=== PATIENT | female | born 1960 | race Caucasian/White ===

== ENCOUNTER → 2018-02-15 14:18 | Outpatient (CLI) | payer OTHER, SELFPAY ==
[2018-02-15 16:02] LABS: ALB/GLOB Ratio 1.2 RATIO (0.9-2.4); AST(SGOT) 14 U/L (15-37); Alanine Aminotransfer ALT/SGPT 23 U/L (13-56); Albumin, Serum 3.7 g/dL (3.2-5.0); Alkaline Phosphatase 101 U/L (45-117); Anion Gap 10 (5-15); BUN 21 mg/dL (7-18); BUN/Creat Ratio 27.8 RATIO (10-20); Calcium,Total 8.5 mg/dL (8.5-10.1); Chloride 108 mmol/L (98-107); Creatinine, Serum 0.76 mg/dL (0.55-1.02); EST Glomerular Filtration Rate 85 mL/min (>60); Est Glom Filt Rate - Afr Amer 102 mL/min (>60); Globulin 3.2 g/dL (2.2-4.2); Glucose 172 mg/dL (74-106); Potassium 3.6 mmol/L (3.5-5.1); Protein, Total 6.9 g/dL (6.4-8.2); Sodium Level 142 mmol/L (136-145); Thyroid Stim Hormone (TSH) 0.35 uIU/mL (0.358-3.74)
[2018-02-16 11:58] LABS: Vitamin D,25 Hydroxy 70.2 ng/mL (29.95-100.01)
== END ==
PROVIDERS: Visit Provider Internal Medicine Endocrinology, Diabetes & Metabolism
DX: E89.0 Postprocedural hypothyroidism (principal); E55.9 Vitamin D deficiency, unspecified
CPT/HCPCS: 36415; 80053; 82306; 84443

== ENCOUNTER → 2018-03-09 10:51 | Outpatient (CLI) | payer OTHER, SELFPAY ==
[2018-03-09 12:22] LABS: Hematocrit 40.6 % (37-47); Hemoglobin 13.5 g/dl (12.0-15.0); Mean Corp Hgb Conc 33.3 g/gl (32-36); Mean Corpuscular Hgb 28.8 pg (27.0-32.0); Mean Corpuscular Volume 86.8 fL (81-99); Mean Platelet Vol. 10.8 fl (6.2-12.0); Platelet Count 225 K/mm3 (150-450); RBC Distribution Width SD 40.9 fl (35.1-43.9); Red Blood Count 4.68 M/mm3 (4.2-5.4); White Blood Count 5.5 K/mm3 (4.4-11.0)
[2018-03-09 12:25] LABS: Scan Indicated on CBC? Y/N NO
[2018-03-09 12:53] LABS: Hemoglobin A1c 5.7 % (4.2-6.3)
[2018-03-09 12:58] LABS: ALB/GLOB Ratio 1.2 RATIO (0.9-2.4); AST(SGOT) 16 U/L (15-37); Alanine Aminotransfer ALT/SGPT 22 U/L (13-56); Alkaline Phosphatase 103 U/L (45-117); Anion Gap 5 (5-15); BUN 20 mg/dL (7-18); BUN/Creat Ratio 34.8 RATIO (10-20); Calcium,Total 8.9 mg/dL (8.5-10.1); Chloride 110 mmol/L (98-107); Cholesterol 140 mg/dL (200); Creatinine, Serum 0.58 mg/dL (0.55-1.02); EST Glomerular Filtration Rate 116 mL/min (>60); Est Glom Filt Rate - Afr Amer 140 mL/min (>60); Globulin 3.3 g/dL (2.2-4.2); Glucose 92 mg/dL (74-106); High Density Lipoprotein 62 mg/dL; Potassium 3.8 mmol/L (3.5-5.1); Protein, Total 7.3 g/dL (6.4-8.2); Sodium Level 142 mmol/L (136-145); Thyroid Stim Hormone (TSH) 0.42 uIU/mL (0.358-3.74); Triglycerides 81 mg/dL; Very Low Density Lipoprotein 16 mg/dL (5-40)
== END ==
DX: I10 Essential (primary) hypertension (principal); E78.5 Hyperlipidemia, unspecified; E11.9 Type 2 diabetes mellitus without complications
CPT/HCPCS: 36415; 80053; 80061; 83036; 84443; 85027

== ENCOUNTER → 2018-03-23 11:08 | Outpatient (CLI) | payer OTHER, SELFPAY ==
[2018-03-23 12:22] LABS: Thyroid Stim Hormone (TSH) 0.93 uIU/mL (0.358-3.74)
== END ==
PROVIDERS: Visit Provider Internal Medicine Endocrinology, Diabetes & Metabolism
DX: E89.0 Postprocedural hypothyroidism (principal); R73.01 Impaired fasting glucose
CPT/HCPCS: 36415; 84443

== ENCOUNTER → 2018-09-03 16:38 | Outpatient (CLI) | payer OTHER, SELFPAY ==
[2018-09-03 18:30] LABS: ALB/GLOB Ratio 1.2 RATIO (0.9-2.4); AST(SGOT) 14 U/L (15-37); Alanine Aminotransfer ALT/SGPT 21 U/L (13-56); Albumin, Serum 4.1 g/dL (3.2-5.0); Alkaline Phosphatase 96 U/L (45-117); Anion Gap 9 (5-15); BUN 16 mg/dL (7-18); BUN/Creat Ratio 28.7 RATIO (10-20); Calcium,Total 8.9 mg/dL (8.5-10.1); Chloride 104 mmol/L (98-107); Creatinine, Serum 0.56 mg/dL (0.55-1.02); EST Glomerular Filtration Rate 120 mL/min (>60); Est Glom Filt Rate - Afr Amer 145 mL/min (>60); Globulin 3.4 g/dL (2.2-4.2); Glucose 81 mg/dL (74-106); Potassium 3.5 mmol/L (3.5-5.1); Protein, Total 7.5 g/dL (6.4-8.2); Sodium Level 140 mmol/L (136-145); Thyroid Stim Hormone (TSH) 0.94 uIU/mL (0.358-3.74); Vitamin D,25 Hydroxy 66.8 ng/mL (29.95-100.01)
== END ==
PROVIDERS: Referring Provider Internal Medicine Endocrinology, Diabetes & Metabolism; Visit Provider Internal Medicine Endocrinology, Diabetes & Metabolism
DX: E55.9 Vitamin D deficiency, unspecified (principal); E89.0 Postprocedural hypothyroidism
CPT/HCPCS: 36415; 80053; 82306; 84443

== ENCOUNTER 2018-12-28 16:35 | Observation (INO) | payer OTHER, SELFPAY ==
[2018-12-28] VITALS (10 sets, daily range): BP systolic 108–151; BP diastolic 63–87; PULSE 58–84; RESP 14–16; TEMP 36.5–36.7; O2SAT 96–97; BMI 34.4
--- NOTE | 2018-12-28 16:42 | EKG12_ITS ---
Test Reason : CP ADMIT Blood Pressure : / mmHG Vent. Rate : 070 BPM Atrial Rate : 070 BPM P-R Int : 188 ms QRS Dur : 092 ms QT Int : 396 ms P-R-T Axes : 035 023 053 degrees QTc Int : 427 ms Normal sinus rhythm Nonspecific ST abnormality Abnormal ECG Confirmed by AUDIE DENNIS, SYLVIA ([id number]), online content editor TIMUR STEVENS ([id number]) on 01/02/2019 10:17:47 AM Referred By: Lasha Dietrich Confirmed By:SYLVIA BRONSON MD
--- NOTE | 2018-12-28 16:45 | RAD_ITS ---
STUDY: X-RAY CHEST REASON FOR EXAM: Female, 58 years old. Acute substernal chest pain TECHNIQUE: Single AP portable view of the chest. COMPARISON: None. FINDINGS: EKG leads overlie the chest The lungs are clear and expanded. There is no demonstrated pleural abnormality. Normal size heart. Normal mediastinum and kannan. Normal visualized pulmonary arteries. Normal visualized aortic arch and descending thoracic aorta. There is a dextroscoliosis of the thoracic spine. Normal visualized ribs, clavicles, and shoulders. There is no demonstrated abnormality of the visualized soft tissue structures of the upper abdomen. RAD/Chest 1 View (Portable) IMPRESSION: No acute pulmonary process Electronically Signed: Richie Negron MD at 16:54 EST , Service support ,
--- NOTE | 2018-12-28 16:46 | ED.VISSUMM ---
- ER Visit Summary Date of Service: 12/28/18 Chief Complaint: Chest pain History of Present Illness: The patient is a 58 F presents to the emergency department chest pain. The patient states that she was in her normal state of health. She was recently diagnosed with bronchitis and pleurisy. She was placed on prednisone. She states that about 1230 today, she had a sudden onset heaviness in her left chest. She did feel mildly short of breath. The pain did not radiate. She is never had pain like this before. She does have history of hypertension and hyperlipidemia. There is also a strong family history of heart disease. She is never had a heart cath or stress test. She denies any recent travel. She denies leg swelling. She had no orthopnea. She does not smoke. Physical Examination: Vital signs reviewed General: Well-nourished, well-developed Head: Normocephalic, atraumatic Eyes: Pupils equal and reactive, extraocular muscles intact Neck, supple, no lymphadenopathy Heart: Regular rate and rhythm Respiratory: No distress, clear bilaterally Abdomen: Soft, nontender, nondistended, no peritoneal signs Back: Nontender Extremities: Nontender, no edema, no cords Skin: Normal color no rash Neuro: Alert and oriented, no focal or lateralizing deficits Test Results: [] Emergency Department Course and Treatment: The patient presents with left-sided chest pain with some mild shortness of breath. She does have a strong family history of heart disease, hypertension, hyperlipidemia. She has not had any exertional pain. Her EKG does not show acute ischemic change. There is some nonspecific ST depression in the lateral leads, but my suspicion is that this is likely voltage related. Her initial cardiac enzymes are normal. She really had no progression or change with the nitro. She was given Toradol. D-dimer was negative. Screening labs are unremarkable. Given the patient's age and cardiac risk factors, along with her heart score of 5 I do feel that she would benefit from admission for cardiac risk stratification. Patient was discussed with the hospitalist. Treatment Plan: [] Disposition: Admission Impression: 1. Chest pain This note was generated with [employer] software. It may contain incorrect words, spelling, and punctuation that were not noted in review of the chart prior to signing ED Disposition - Plan for ED Patient: Referrals: Marai M Kirk NP-C [Primary Care Provider] -
[2018-12-28] MEDS: Aspirin 81 MG TAB.CHEW 324 MG PO (17:04)
[2018-12-28 17:07] LABS: Absolute Lymphocyte Count 1.63 X10^3/ul (0.83-4.51); Absolute Neutrophil Count 3.4 X10^3/uL (2.0-7.7); Basophil# 0.02 X10^3/uL; Basophil% 0.4 % (0-1); Eosinophil# 0.01 X10^3/uL; Eosinophils% 0.2 % (0-5); Hematocrit 42.6 % (37-47); Hemoglobin 14.2 g/dl (12.0-15.0); Lymphocyte # 1.63 X10^3/ul (4.0); Lymphocyte % 29.3 % (19-41); Mean Corp Hgb Conc 33.3 g/gl (32-36); Mean Corpuscular Hgb 29.2 pg (27.0-32.0); Mean Corpuscular Volume 87.7 fL (81-99); Mean Platelet Vol. 10.1 fl (6.2-12.0); Monocyte# 0.45 X10^3/uL; Monocyte% 8.1 % (0-10); Neutrophil # 3.41 X10^3/uL (2.7-7.7); Neutrophil % 61.1 % (47-70); Platelet Count 252 K/mm3 (150-450); RBC Distribution Width CV 12.9 % (11.6-14.6); RBC Distribution Width SD 40.9 fl (35.1-43.9); Red Blood Count 4.86 M/mm3 (4.2-5.4); White Blood Count 5.6 K/mm3 (4.4-11.0)
[2018-12-28 17:09] LABS: Anion Gap 9 (5-15); BUN 24 mg/dL (7-18); BUN/Creat Ratio 31.3 RATIO (10-20); Calcium,Total 8.8 mg/dL (8.5-10.1); Chloride 103 mmol/L (98-107); Creatinine, Serum 0.77 mg/dL (0.55-1.02); EST Glomerular Filtration Rate 83 mL/min (>60); Est Glom Filt Rate - Afr Amer 100 mL/min (>60); Estimated Creatinine Clearance 79.33 ml/min; Glucose 111 mg/dL (74-106); Potassium 3.5 mmol/L (3.5-5.1); Sodium Level 140 mmol/L (136-145)
[2018-12-28] MEDS: 0.9% Normal Saline 1,000 ML 150 ML IV (17:10)
[2018-12-28 17:17] LABS: D-Dimer Quantitative (DVT/PE) < 0.27 FEU/ug/m (0.27-0.49)
[2018-12-28 17:18] LABS: Differential Indicated SCAN CRITERIA MET; POSITIVE COUNT NO; POSITIVE DIFFERENTIAL NO; POSITIVE MORPHOLOGY YES
[2018-12-28 17:37] LABS: Differential Comment SCANNED; Reactive Lymphocyte 1+
[2018-12-28] MEDS: Ketorolac 30 MG/ML Syringe IV (17:48)
--- NOTE | 2018-12-28 18:19 | HP.PCM_ITS ---
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 Pain was left upper chest, localized, constant started about 12:30 PM today and is still persistent. Patient felt mild short of breath but not very sure. Denies palpitation, arrhythmia, diaphoresis, near syncope or syncope. Never had chest pain or cardiac workup in the past. Her father at the age of 55 because of first heart attack. In ED, workup was essentially unremarkable except glucose 111. First troponin negative. EKG shows normal sinus rhythm at [address]-T changes, with voltage criteria consistent with LVH Past Medical History Past Medical History (Chronic Problems): Chronic Problems (Last Updated 04/09/18 @ 10:50 by Arcelia Shrestha) Hypertension (Chronic) Dyslipidemia (Chronic) Hypothyroidism (Chronic) Obesity grade 3 (Chronic) Medical History: Medical History (Last Updated 04/09/18 @ 10:50 by Arcelia Shrestha) Arthritis M19.90 Thyroid disease E07.9 Hypertension I10 Allergies Penicillins Allergy (Verified 04/09/18 10:48) Hives Home Medications: Ambulatory Orders Medication Instructions Recorded hydrochlorothiazide 12.5 mg tablet 12.5 mg PO DAILY 90 Days #90 04/09/18 Atenolol [Tenormin (beta grace)] 100 mg PO DAILY 12/28/18 Cetirizine HCl [Zyrtec] 10 mg PO DAILY 12/28/18 Ergocalciferol [Vitamin D] 50,000 unit PO FR 12/28/18 Levothyroxine Sodium [Synthroid] 137 mcg PO DAILY 12/28/18 Meloxicam 15 mg PO DAILY 12/28/18 Prednisone 20 mg PO BID 12/28/18 Simvastatin 40 mg PO QHS 12/28/18 Smoking Status: Never smoker - *Family History Paternal History Items: Heart Disease - of [place] at the age of 55 Review of Systems Constitutional: Denies: Chills, Fever, Weight Change HEENT: Denies: Head Aches, Sinus Congestion, Sinus Drainage Cardiovascular: Reports: Chest Pain. Denies: Palpitations Respiratory: Denies: Cough, Shortness of breath at rest, Sputum production Gastrointestinal: Denies: Abdominal Pain, Nausea, Vomiting Genitourinary: Denies: Dysuria Musculoskeletal: Denies: Joint Pain, Joint Tenderness Skin: Denies: Rash, Wounds Neurological: Denies: Numbness, Tingling, Focal weakness Psychiatric: Denies: Anxiety, Depression, Homicidal Ideations, Suicidal Ideations Hematologic/ Lymphatic: Denies: Easy Bruising, Easy Bleeding VTE Information - Inpt Only VTE Present on Admission: No VTE Mechan Device Prophylaxis: None VTE Pharm Prophylaxis ordered?: Yes Patient Problems: Active and Suspected Problems (Last Updated 04/09/18 @ 10:50 by Arcelia Shrestha) Atypical chest pain (Acute) - Physical Exam General: Alert, Oriented x3, Cooperative HEENT: Atraumatic, PERRLA, EOMI, Normocephalic Neck: Supple, No JVD, Negative Carotid Bruits Lungs: Clear to auscultation, Normal air movement, No rhonchi, No wheeze, No rales Cardiovascular: Regular rate, Regular Rhythm, Normal S1, Normal S2, No murmurs Abdomen: Bowel Sounds Present, Soft, Non Tender, Non-Distended Extremities: No edema, Capillary Refill Less than 3 Seconds Skin: No rashes, No breakdown Musculoskeletal: No Tenderness to Palpation of Joints or Extremities Neurological: Cranial nerves II-XII grossly intact Psych/Mental Status: Normal Affect, Appropriate Vital Signs Temp Pulse Resp BP Pulse Ox 97.7 F L 75 14 131/86 H 96 12/28/18 16:36 12/28/18 17:18 12/28/18 17:11 12/28/18 17:18 12/28/18 17:11 Oxygen Delivery Method Room Air Weight: 220 lb 3.869 oz Body Mass Index (BMI) 34.4 Laboratory Tests Past 24 Hrs 12/28/18 12/28/18 12/28/18 16:45 16:45 16:45 WBC 5.6 RBC 4.86 Hgb 14.2 Hct 42.6 MCV 87.7 MCH 29.2 MCHC 33.3 RDW 12.9 RDW Differential 40.9 Plt Count 252 MPV 10.1 Immature Gran % (Auto) 0.900 Neut % (Auto) 61.1 Lymph % (Auto) 29.3 [place] % (Auto) 8.1 Eos % (Auto) 0.2 Baso % (Auto) 0.4 Absolute Neuts (auto) 3.4 Absolute Lymphs (auto) 1.63 Total Counted Not Reportable Differential Comment SCANNED Reactive Lymphocytes 1+ D-Dimer Quant (PE/DVT) < 0.27 L Sodium 140 Potassium 3.5 Chloride 103 Carbon Dioxide 28.0 Anion Gap 9 BUN 24 H Creatinine 0.77 Estim Creat Clear Calc 79.33 Est GFR (MDRD) Af Amer 100 Est GFR (MDRD) Non-Af 83 BUN/Creatinine Ratio 31.3 H Glucose 111 H Calcium 8.8 Troponin I < 0.015 Assessment/Plan All Active Problems (Last Updated 04/09/18 @ 10:50 by Arcelia Shrestha) Atypical chest pain (Acute) Laceration of left little finger w/o foreign body w/o damage to nail (Acute) The patient is a 58 year old F with history of hypertension, dyslipidemia and obesity grade 3 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 Pain was left upper chest, localized, constant started about 12:30 PM today and is still persistent. Patient felt mild short of breath but not very sure. Denies palpitation, arrhythmia, diaphoresis, near syncope or syncope. Never had chest pain or cardiac workup in the past. Her father at the age of 55 because of first heart attack. In ED, workup was essentially unremarkable except glucose 111. First troponin negative. EKG shows normal sinus rhythm at [address]-T changes, with voltage criteria suggestive of LVH. Chest x-ray no acute pulmonary process 1. Atypical chest pain rule out acute coronary syndrome: Patient is being admitted in PCU for observation. Cardiac monitoring. Cycle troponin enzymes. Treadmill nuclear stress test tomorrow morning. 2. Hypertension: Blood pressure is 140/87: Continue home cardiac medications except HCTZ. 3. Dyslipidemia: Fasting blood tomorrow morning. Continue simvastatin. 4. Hypothyroidism: On levothyroxine. TSH and free T4 tomorrow a.m. 5. Mild hyperglycemia: A1c ordered tomorrow a.m. to rule out diabetes mellitus. DVT prophylaxis: Moderate risk: Lovenox 40 mg subcu daily. Discontinue if platelet count drops less than 90,000 or hemoglobin less than 8 g% Code Visit OBSV E&M: 67900 Initial observation care L3
--- NOTE | 2018-12-28 18:29 | EKG12_ITS ---
Test Reason : CP Blood Pressure : / mmHG Vent. Rate : 077 BPM Atrial Rate : 077 BPM P-R Int : 176 ms QRS Dur : 086 ms QT Int : 384 ms P-R-T Axes : 042 033 053 degrees QTc Int : 434 ms Normal sinus rhythm Nonspecific ST abnormality Abnormal ECG Confirmed by VIKKI DENNIS, CHERRY ([id number]), city editor TIMUR STEVENS ([id number]) on 01/01/2019 11:38:37 AM Referred By: Lasha Dietrich Confirmed By:CHERRY FLOREZ MD
[2018-12-28] MEDS: Enoxaparin 40 MG/0.4 ML Syringe SC (18:50)
[2018-12-28] MEDS: Atorvastatin Calcium 20 MG Tablet PO (19:40)
[2018-12-28] MEDS: amLODIPine 10 MG Tablet PO (19:40)
[2018-12-28 20:38] LABS: Hemoglobin A1c 5.8 % (4.2-6.3)
[2018-12-29 03:01] VITALS: PULSE 57
[2018-12-29 05:40] VITALS: BP 129/79; PULSE 63; RESP 14; TEMP 36.4; O2SAT 97
[2018-12-29] MEDS: Levothyroxine 137 MCG Tablet PO (05:42)
[2018-12-29] MEDS: Aspirin E.C. 81 MG Tablet PO (05:42)
--- NOTE | 2018-12-29 05:55 | EKG12_ITS ---
Test Reason : AM EKG Blood Pressure : / mmHG Vent. Rate : 061 BPM Atrial Rate : 061 BPM P-R Int : 220 ms QRS Dur : 102 ms QT Int : 436 ms P-R-T Axes : 044 027 055 degrees QTc Int : 438 ms Sinus rhythm with sinus arrhythmia with 1st degree A-V block Otherwise normal ECG Confirmed by AUDIE DENNIS, SYLVIA ([id number]), editor in chief TIMUR STEVENS ([id number]) on 01/02/2019 10:16:20 AM Referred By: Lasha Dietrich Confirmed By:SYLVIA BRONSON MD
[2018-12-29 06:45] LABS: Absolute Lymphocyte Count 3.59 X10^3/ul (0.83-4.51); Absolute Neutrophil Count 1.4 X10^3/uL (2.0-7.7); Basophil# 0.02 X10^3/uL; Basophil% 0.4 % (0-1); Eosinophil# 0.05 X10^3/uL; Eosinophils% 0.9 % (0-5); Hematocrit 39.3 % (37-47); Hemoglobin 12.8 g/dl (12.0-15.0); Lymphocyte # 3.59 X10^3/ul (4.0); Lymphocyte % 64.3 % (19-41); Mean Corp Hgb Conc 32.6 g/gl (32-36); Mean Corpuscular Hgb 28.8 pg (27.0-32.0); Mean Corpuscular Volume 88.3 fL (81-99); Mean Platelet Vol. 10.1 fl (6.2-12.0); Monocyte# 0.51 X10^3/uL; Monocyte% 9.1 % (0-10); Neutrophil # 1.39 X10^3/uL (2.7-7.7); Neutrophil % 24.9 % (47-70); Platelet Count 213 K/mm3 (150-450); RBC Distribution Width CV 13.1 % (11.6-14.6); RBC Distribution Width SD 42.1 fl (35.1-43.9); Red Blood Count 4.45 M/mm3 (4.2-5.4); White Blood Count 5.6 K/mm3 (4.4-11.0)
[2018-12-29 06:52] LABS: POSITIVE COUNT NO; POSITIVE DIFFERENTIAL NO; POSITIVE MORPHOLOGY NO; Prothrombin Time (Protime)PT. 13.6 SECONDS (11.7-14.9)
[2018-12-29 06:53] LABS: Partial Thromboplast Time 26.9 Seconds (24.1-36.2)
[2018-12-29 07:00] VITALS: PULSE 59
[2018-12-29 07:05] LABS: Anion Gap 9 (5-15); BUN 21 mg/dL (7-18); BUN/Creat Ratio 36.3 RATIO (10-20); Calcium,Total 8.6 mg/dL (8.5-10.1); Chloride 107 mmol/L (98-107); Cholesterol 149 mg/dL (200); Creatinine, Serum 0.58 mg/dL (0.55-1.02); EST Glomerular Filtration Rate 114 mL/min (>60); Est Glom Filt Rate - Afr Amer 138 mL/min (>60); Estimated Creatinine Clearance 105.32 ml/min; Glucose 77 mg/dL (74-106); High Density Lipoprotein 47 mg/dL; Potassium 3.2 mmol/L (3.5-5.1); Sodium Level 143 mmol/L (136-145); Thyroid Stim Hormone (TSH) 4.46 uIU/mL (0.358-3.74); Triglycerides 153 mg/dL; Very Low Density Lipoprotein 31 mg/dL (5-40)
[2018-12-29 08:05] LABS: T4 Free Direct 1.61 ng/dL (0.76-1.46)
[2018-12-29 11:25] VITALS: PULSE 68
[2018-12-29 11:27] VITALS: BP 112/71; PULSE 66; RESP 14; TEMP 36.7; O2SAT 98
[2018-12-29] MEDS: amLODIPine 10 MG Tablet PO (11:31)
[2018-12-29] MEDS: Atenolol 100 MG Tablet PO (12:00)
--- NOTE | 2018-12-29 12:14 | STRESSREP_ITS ---
Stress Test Report Exercise myocardial perfusion stress test. 58-year-old lady with a history of chest pain. Stress protocol: Resting EKG demonstrates normal sinus rhythm with a rate of 65 beats minute normal intervals are noted resting blood pressure 122/76 mmHg. The patient exercised according to regular Maurizio protocol for total duration of 7 minutes a nd 30 seconds the maximum heart rate attained was 142 bpm which was 86% of maximum predicted heart rate the maximum workload was 7.3 metabolic equivalents. The patient maintained sinus rhythm throughout the recording. At rest there were no ST or T wave changes noted suggest ischemia at peak exercise no EKG changes were noted suggest ischemia. The resting blood pressure 122/76 with a peak blood pressure 180/82. No clinical angina was noted the test was terminated due to shortness of breath. Rate pressure product was 23,500. Myocardial perfusion protocol. 14.3 mCi of technetium 99m sestamibi was injected at rest. Patient exercised according to regular Maurizio protocol for 7-1/2 minutes at peak exercise 43.0 mCi of technetium 99m sestamibi was injected stress images were obtained stress and rest images were reconstructed and compared in the short axis vertical long horizontal long axis. Gated images were also obtained Perfusion SPECT analysis: Review of the stress images demonstrate normal uptake of tracer noted in all areas of myocardium. The resting images similarly demonstrate normal uptake of tracer noted in all areas of myocardium. No reversibility is noted suggest ischemia no previous infarct is noted. Gated SPECT analysis: The gated ejection fraction is noted to be 78%. Conclusion: Normal exercise myocardial perfusion stress test at a moderate workload. Preserved ejection fraction.
--- NOTE | 2018-12-29 12:40 | DCINST_ITS ---
- Discharge Diagnoses Current Active Problems: Current Active and Chronic Problems (Last Updated 04/09/18 @ 10:50 by Arcelia Shrestha) Atypical chest pain (Acute) Hypertension (Chronic) Dyslipidemia (Chronic) Hypothyroidism (Chronic) Obesity grade 3 (Chronic) You will use the following diet at home:: No restrictions Your food should be the consistency of: Regular Discharge Activity: Return to Normal Activity Instructions: ED Chest Pain NonCardiac Allergies/Adverse Reactions: Allergies Penicillins Allergy (Verified 04/09/18 10:48) Hives lisinopril Adverse Reaction (Verified 12/28/18 18:50) Other cough Medications to take at Discharge hydrochlorothiazide 12.5 mg tablet 12.5 mg PO DAILY 90 Days #90 04/09/18 Atenolol [Tenormin (beta grace)] 100 mg PO DAILY 12/28/18 Cetirizine HCl [Zyrtec] 10 mg PO DAILY 12/28/18 Ergocalciferol [Vitamin D] 50,000 unit PO FR 12/28/18 Levothyroxine Sodium [Synthroid] 137 mcg PO DAILY 12/28/18 Meloxicam 15 mg PO DAILY 12/28/18 Prednisone 20 mg PO BID 12/28/18 Simvastatin 40 mg PO QHS 12/28/18 Primary Care Physician: Maria M Kirk, LEARNING AND DEVELOPMENT ANALYST-C [NON-STAFF] - Please follow up with your Primary Care Physician in: IN 1-2 WEEKS Test Results: Test results from this visit will be discussed in further detail at your follow- up appointment, if applicable. Proposed Discharge Date: 12/29/18
--- NOTE | 2018-12-29 12:40 | DS.PCM_ITS ---
Discharge Date and Diagnosis Date of Admission: 12/28/18 Date of Discharge: 12/29/18 - Primary Discharge Diagnosis Active and Suspected Problems (Last Updated 04/09/18 @ 10:50 by Arcelia Shrestha) Atypical chest pain (Acute) - Secondary Discharge Diagnosis Chronic Problems (Last Updated 04/09/18 @ 10:50 by Arcelia Shrestha) Hypertension (Chronic) Dyslipidemia (Chronic) Hypothyroidism (Chronic) Obesity grade 3 (Chronic) Hospital Course and Treatment Imaging Results: 12/29/18 05:55 Nuclear Stress Test - Treadmil [NM] AM (NON MEDS) Summary of Care Provided: The patient is a 58 year old F with past medical history significant for hypertension and dyslipidemia presented with chest pain 1. Chest pain patient was placed on a monitored bed did rule out [place] with serial cardiac which is negative for stress-induced ischemia 2. Hypertension-blood pressure controlled, home medications continued with dose adjustment as needed 3. Dyslipidemia-patient is on statin therapy, continued at home dose 4. Hypothyroidism-patient is on levothyroxine home dose continued 5. Obesity with BMI of 34.4 weight loss advised 6. Mild hyperglycemia patient hemoglobin A1c only 5.8 not consistent with diabetes 7. DVT prophylaxis SC Lovenox - Physical Exam General: Alert HEENT: Atraumatic Oral: Moist Mucosa Neck: Supple Lungs: Diminished Cardiovascular: Regular rate, Regular Rhythm Neurological: Neuro grossly intact Psych/Mental Status: Normal Affect Vital Signs Temp Pulse Resp BP Pulse Ox 98.0 F 66 14 112/71 98 12/29/18 11:27 12/29/18 11:27 12/29/18 11:27 12/29/18 11:27 12/29/18 11:27 Oxygen Delivery Method Room Air Weight: 99.63 kg Body Mass Index (BMI) 34.4 Intake and Output for Last 24 Hours 12/27/18 12/28/18 12/29/18 23:59 23:59 23:59 Intake Total 50 / 50 360 / 360 Balance 50 / 50 360 / 360 Laboratory Tests Past 24 Hrs 12/28/18 12/28/18 12/28/18 16:45 16:45 16:45 WBC 5.6 RBC 4.86 Hgb 14.2 Hct 42.6 MCV 87.7 MCH 29.2 MCHC 33.3 RDW 12.9 RDW Differential 40.9 Plt Count 252 MPV 10.1 Immature Gran % (Auto) 0.900 Neut % (Auto) 61.1 Lymph % (Auto) 29.3 [place] % (Auto) 8.1 Eos % (Auto) 0.2 Baso % (Auto) 0.4 Absolute Neuts (auto) 3.4 Absolute Lymphs (auto) 1.63 Total Counted Not Reportable Differential Comment SCANNED Reactive Lymphocytes 1+ PT INR APTT D-Dimer Quant (PE/DVT) < 0.27 L Sodium 140 Potassium 3.5 Chloride 103 Carbon Dioxide 28.0 Anion Gap 9 BUN 24 H Creatinine 0.77 Estim Creat Clear Calc 79.33 Est GFR (MDRD) Af Amer 100 Est GFR (MDRD) Non-Af 83 BUN/Creatinine Ratio 31.3 H Glucose 111 H Hemoglobin A1c Calcium 8.8 Troponin I < 0.015 Triglycerides Cholesterol LDL Cholesterol VLDL Cholesterol HDL Cholesterol TSH Free T4 12/28/18 12/28/18 12/28/18 19:50 19:50 22:50 WBC RBC Hgb Hct MCV MCH MCHC RDW RDW Differential Plt Count MPV Immature Gran % (Auto) Neut % (Auto) Lymph % (Auto) [place] % (Auto) Eos % (Auto) Baso % (Auto) Absolute Neuts (auto) Absolute Lymphs (auto) Total Counted Differential Comment Reactive Lymphocytes PT INR APTT D-Dimer Quant (PE/DVT) Sodium Potassium Chloride Carbon Dioxide Anion Gap BUN Creatinine Estim Creat Clear Calc Est GFR (MDRD) Af Amer Est GFR (MDRD) Non-Af BUN/Creatinine Ratio Glucose Hemoglobin A1c 5.8 Calcium Troponin I < 0.015 < 0.015 Triglycerides Cholesterol LDL Cholesterol VLDL Cholesterol HDL Cholesterol TSH Free T4 12/29/18 12/29/18 12/29/18 06:04 06:04 06:04 WBC 5.6 RBC 4.45 Hgb 12.8 Hct 39.3 MCV 88.3 MCH 28.8 MCHC 32.6 RDW 13.1 RDW Differential 42.1 Plt Count 213 MPV 10.1 Immature Gran % (Auto) 0.400 Neut % (Auto) 24.9 L Lymph % (Auto) 64.3 H [place] % (Auto) 9.1 Eos % (Auto) 0.9 Baso % (Auto) 0.4 Absolute Neuts (auto) 1.4 L Absolute Lymphs (auto) 3.59 Total Counted Not Reportable Differential Comment Reactive Lymphocytes PT INR APTT D-Dimer Quant (PE/DVT) Sodium 143 Potassium 3.2 L Chloride 107 Carbon Dioxide 27.0 Anion Gap 9 BUN 21 H Creatinine 0.58 Estim Creat Clear Calc 105.32 Est GFR (MDRD) Af Amer 138 Est GFR (MDRD) Non-Af 114 BUN/Creatinine Ratio 36.3 H Glucose 77 Hemoglobin A1c Calcium 8.6 Troponin I Triglycerides 153 Cholesterol 149 LDL Cholesterol 71 VLDL Cholesterol 31 HDL Cholesterol 47 TSH 4.46 H Free T4 1.61 H 12/29/18 06:04 WBC RBC Hgb Hct MCV MCH MCHC RDW RDW Differential Plt Count MPV Immature Gran % (Auto) Neut % (Auto) Lymph % (Auto) [place] % (Auto) Eos % (Auto) Baso % (Auto) Absolute Neuts (auto) Absolute Lymphs (auto) Total Counted Differential Comment Reactive Lymphocytes PT 13.6 INR 1.0 APTT 26.9 D-Dimer Quant (PE/DVT) Sodium Potassium Chloride Carbon Dioxide Anion Gap BUN Creatinine Estim Creat Clear Calc Est GFR (MDRD) Af Amer Est GFR (MDRD) Non-Af BUN/Creatinine Ratio Glucose Hemoglobin A1c Calcium Troponin I Triglycerides Cholesterol LDL Cholesterol VLDL Cholesterol HDL Cholesterol TSH Free T4 Discharge Diet: No Restrictions Discharge Activity: Return to Normal Activity Home Medications: Medications to take at Discharge hydrochlorothiazide 12.5 mg tablet 12.5 mg PO DAILY 90 Days #90 04/09/18 Atenolol [Tenormin (beta grace)] 100 mg PO DAILY 12/28/18 Cetirizine HCl [Zyrtec] 10 mg PO DAILY 12/28/18 Ergocalciferol [Vitamin D] 50,000 unit PO FR 12/28/18 Levothyroxine Sodium [Synthroid] 137 mcg PO DAILY 12/28/18 Meloxicam 15 mg PO DAILY 12/28/18 Prednisone 20 mg PO BID 12/28/18 Simvastatin 40 mg PO QHS 12/28/18 Primary Care Physician: Maria M Kirk NP-C [NON-STAFF] - Please follow up with your Primary Care Physician in: IN 1-2 WEEKS Patient Instructions: ED Chest Pain NonCardiac Disposition: Home Minutes spent on discharge:: 35 Patient Condition:: Stable Medical Necessity - Tobacco Use Smoking Status: Never smoker Meaningful Use Info Meaningful Use Diagnoses (Choose all that apply): None applicable Code Visit OBSV E&M: 06114 Observation care discharge
== END 2018-12-29 12:40 | disposition home or self-care (01) ==
LOC: ED 17:56 → PCU 18:13
PROVIDERS: Admitting Provider Internal Medicine; Emergency Provider Emergency Medicine; Family Provider Internal Medicine; PCP Internal Medicine; Referring Provider Internal Medicine; Visit Provider Internal Medicine
DX: R07.89 Other chest pain (principal); R06.02 Shortness of breath; E78.5 Hyperlipidemia, unspecified; I10 Essential (primary) hypertension; Z82.49 Family history of ischemic heart disease and other diseases of the circulatory system; Z79.899 Other long term (current) drug therapy; E03.9 Hypothyroidism, unspecified; E66.9 Obesity, unspecified; Z68.34 Body mass index [BMI] 34.0-34.9, adult; Z71.3 Dietary counseling and surveillance; M19.90 Unspecified osteoarthritis, unspecified site; R73.9 Hyperglycemia, unspecified; Z79.52 Long term (current) use of systemic steroids
CPT/HCPCS: 36415; 71045; 78452; 80048; 80061; 83036; 84439; 84443; 84484; 85025; 85379; 85610; 85730; 93005; 93017; 96372; 96374; 99218; 99285; A9500; J7030; A4216; G0378

== ENCOUNTER → 2019-03-22 14:27 | Outpatient (CLI) | payer OTHER, SELFPAY ==
[2018-12-28 18:22] VITALS: BMI 34.4
[2019-03-22 15:34] LABS: ALB/GLOB Ratio 1.2 RATIO (0.9-2.4); AST(SGOT) 12 U/L (15-37); Alanine Aminotransfer ALT/SGPT 23 U/L (13-56); Albumin, Serum 3.9 g/dL (3.2-5.0); Alkaline Phosphatase 86 U/L (45-117); Anion Gap 7 (5-15); BUN 19 mg/dL (7-18); BUN/Creat Ratio 34.9 RATIO (10-20); Chloride 107 mmol/L (98-107); Creatinine, Serum 0.54 mg/dL (0.55-1.02); EST Glomerular Filtration Rate 123 mL/min (>60); Est Glom Filt Rate - Afr Amer 149 mL/min (>60); Globulin 3.2 g/dL (2.2-4.2); Glucose 81 mg/dL (74-106); Potassium 3.8 mmol/L (3.5-5.1); Protein, Total 7.1 g/dL (6.4-8.2); Sodium Level 142 mmol/L (136-145); Thyroid Stim Hormone (TSH) 0.16 uIU/mL (0.358-3.74)
== END ==
PROVIDERS: Family Provider Internal Medicine; PCP Internal Medicine; Referring Provider Internal Medicine Endocrinology, Diabetes & Metabolism; Visit Provider Internal Medicine Endocrinology, Diabetes & Metabolism
DX: E89.0 Postprocedural hypothyroidism (principal)
CPT/HCPCS: 36415; 80053; 84443

== ENCOUNTER → 2019-11-19 09:13 | Outpatient (CLI) | payer OTHER, SELFPAY ==
[2018-12-28 18:22] VITALS: BMI 34.4
[2019-11-19 10:21] LABS: ALB/GLOB Ratio 1.1 RATIO (0.9-2.4); AST(SGOT) 14 U/L (15-37); Alanine Aminotransfer ALT/SGPT 24 U/L (13-56); Albumin, Serum 3.8 g/dL (3.2-5.0); Alkaline Phosphatase 82 U/L (45-117); Anion Gap 4 (5-15); BUN 20 mg/dL (7-18); BUN/Creat Ratio 32.2 RATIO (10-20); Calcium,Total 8.7 mg/dL (8.5-10.1); Chloride 109 mmol/L (98-107); Creatinine, Serum 0.62 mg/dL (0.55-1.02); EST Glomerular Filtration Rate 105 mL/min (>60); Est Glom Filt Rate - Afr Amer 127 mL/min (>60); Globulin 3.6 g/dL (2.2-4.2); Glucose 88 mg/dL (74-106); Potassium 3.9 mmol/L (3.5-5.1); Protein, Total 7.4 g/dL (6.4-8.2); Sodium Level 141 mmol/L (136-145); Thyroid Stim Hormone (TSH) 2.52 uIU/mL (0.358-3.74)
[2019-11-19 12:37] LABS: Vitamin D,25 Hydroxy 61.8 ng/mL (29.95-100.01)
== END ==
LOC: LAB.FUTURE 09:17 → LAB 09:19
PROVIDERS: Family Provider Internal Medicine; PCP Internal Medicine; Referring Provider Internal Medicine Endocrinology, Diabetes & Metabolism; Visit Provider Internal Medicine Endocrinology, Diabetes & Metabolism
DX: E89.0 Postprocedural hypothyroidism (principal); E55.9 Vitamin D deficiency, unspecified; M85.9 Disorder of bone density and structure, unspecified; N20.0 Calculus of kidney
CPT/HCPCS: 36415; 80053; 82306; 84443

== ENCOUNTER 2021-01-26 16:33 | Outpatient (RCR) | payer OTHER, SELFPAY ==
[2018-12-28 18:22] VITALS: BMI 34.4
[2021-01-26] MEDS: COVID-19 VACC, MRNA(PFIZER)/PF 30 MCG/0.3 ML SYRINGE IM (14:57)
[2021-02-16] MEDS: COVID-19 VACC, MRNA(PFIZER)/PF 30 MCG/0.3 ML SYRINGE IM (14:56)
== END 2021-04-20 23:59 ==
LOC: IMMUN 16:33
PROVIDERS: PCP Internal Medicine; Referring Provider Family Medicine; Visit Provider Family Medicine
DX: Z23 Encounter for immunization (principal)
CPT/HCPCS: 0001A; 0002A; 91300

== ENCOUNTER → 2022-11-02 | Outpatient (CLI) | payer OTHER, SELFPAY ==
--- NOTE | 2022-11-02 07:55 | CT_ITS ---
STUDY: CT MAXILLOFACIAL SINUSES REASON FOR EXAM: Female, 62 years old. SINUSITIS RADIATION DOSAGE (If Supplied By Facility): CTDIvol = ( 33.06 ) mGy, DLP = ( 825.58 ) mGycm TECHNIQUE: The patient was scanned in a multi detector CT scanner. High resolution axial imaging was performed without the administration of intravenous contrast material. Sagittal and coronal images were reconstructed. Individualized dose optimization techniques were used for this CT. COMPARISON: None. FINDINGS: FRONTAL SINUSES: Minimal mucosal thickening of the posterior portions of the frontal sinus. ETHMOIDAL SINUSES: Partial opacification of the ethmoid sinuses bilaterally. MAXILLARY SINUSES: Normal aeration, without mucosal inflammatory disease. SPHENOIDAL SINUSES: Minimal mucosal thickening along the anterior aspect of the left sphenoid sinus. There is patency of the bilateral maxillary infundibuli with normal uncinate processes, ethmoid bullae, and hiatus semilunaris. Normal bilateral middle turbinates. Normal bilateral inferior turbinates. There is a right sided nasal septal deviation, but without a nasal septal spur. There is patency of the bilateral nasal airways. The visualized osseous structures are normal. The visualized bilateral orbital contents are normal. CT/Sinus/Facial Bone IMPRESSION: Sinusitis as described above. Electronically Signed: Maik Lindo MD at 10:53 [facility] ,
== END | disposition home or self-care (01) ==
PROVIDERS: PCP Internal Medicine; Visit Provider Otolaryngology
DX: J32.8 Other chronic sinusitis (principal)
CPT/HCPCS: 70486

== ENCOUNTER 2023-02-13 22:49 | Emergency (ER) | payer OTHER, SELFPAY ==
[2023-02-13 22:50] VITALS: BP 167/84; PULSE 74; RESP 16; TEMP 36.6; O2SAT 99; BMI 36.0
--- NOTE | 2023-02-13 23:00 | EX.ED.VISEXT ---
HPI History of Present Illness Chief Complaint: Bite Narrative Narrative: Patient presents after dog bite today to the right third digit. No other injuries. His tetanus is not up-to-date. ROS ROS ED ROS Narrative Past medical history: Hypertension, hyperlipidemia, hypothyroidism Medications: Reviewed Social history: Noncontributory Review of systems: Musculoskeletal: Finger laceration as in HPI Skin: Laceration as in HPI Neurological: No weakness or paresthesias Hematologic: No easy bleeding or easy bruising PFSH PFSH Medical History (Updated 02/13/23 @ 23:[address] Derian Alvarez MD) Arthritis Hypertension Thyroid disease Home Medications hydrochlorothiazide 12.5 mg tablet 12.5 mg PO DAILY diuretic 90 days ##90 04/09/18 [History Last Taken 12/28/18] Cetirizine Hcl [Zyrtec] 10 mg PO DAILY allergies 12/28/18 [History Last Taken 12/28/18] atenolol 100 mg tablet 100 mg PO DAILY blood pressure 12/28/18 [History Last Taken 12/28/18] ergocalciferol (vitamin D2) 1,250 mcg (50,000 unit) capsule (Vitamin D2) 50,000 unit PO FR vitamin 12/28/18 [History Last Taken 12/28/18] levothyroxine 137 mcg tablet (Synthroid) 137 mcg PO DAILY thyroid 12/28/18 [History Last Taken 12/28/18] meloxicam 15 mg tablet 15 mg PO DAILY pain for arthritis 12/28/18 [History Last Taken 12/28/18] prednisone 20 mg tablet 20 mg PO BID inflammation 12/28/18 [History Last Taken 12/28/18] simvastatin 40 mg tablet 40 mg PO QHS cholesterol 12/28/18 [History Last Taken 12/27/18] ciprofloxacin HCl 500 mg tablet (Cipro) 500 mg PO BID #8 tabs 02/13/23 [Rx Last Taken Unknown] clindamycin HCl 150 mg capsule 300 mg PO 4X/DAY #16 CAPSULES 02/13/23 [Rx Last Taken Unknown] Allergy/AdvReac Type Severity Reaction Status Date / Time Penicillins Allergy Hives Verified 02/13/23 22:51 lisinopril AdvReac Other Verified 02/13/23 22:51 Social History (Updated 04/09/18 @ 11:37 by Flex WATKINS, PA) Smoking Status: Never smoker EXAM Physical Exam Narrative Exam Narrative: Physical exam General: Patient does not appear in significant distress . Head: Normocephalic, Atraumatic Neck: No C-spine tenderness Cardiovascular: Normal distal pulses Back: Nontender, Normal Inspection. Extremities: Right index finger laceration along the mid phalanx. It is about 1.5 cm flap-like laceration. No bony tenderness normal flexor tendon function. Skin: As above Const Vital Signs: 02/13/23 22:50 Temperature 97.8 F Temperature Source Temporal Pulse Rate 74 Respiratory Rate 16 Blood Pressure 167/84 H Blood Pressure Mean 111 Pulse Ox 99 Oxygen Delivery Method Room Air MDM MDM MDM Narrative Medical decision making narrative: Patient has a dog bite, because of that I am reluctant to suture the wound is likely heal well on its own. We will Steri-Strip and clean it. Tetanus will be updated I will give her antibiotics for home. Otherwise she will be discharged in stable condition. Discharge Plan Triage Chief Complaint: Bite ED Provider: Derian Alvarez Dx/Rx/DC Orders Clinical Impression: Finger laceration, Dog bite Instructions: ED Animal Bite (General) Prescriptions: New ciprofloxacin HCl [Cipro] 500 mg tablet 500 mg PO BID Qty: 8 0RF clindamycin HCl 150 mg capsule 300 mg PO 4X/DAY Qty: 16 0RF No Action hydrochlorothiazide 12.5 mg tablet 12.5 mg PO DAILY 90 Days Qty: 90 Label Comments: atenolol 100 MG tablet 100 mg PO DAILY prednisone 20 MG tablet 20 mg PO BID simvastatin 40 MG tablet 40 mg PO QHS levothyroxine [Synthroid] 137 MCG tablet 137 mcg PO DAILY meloxicam 15 MG tablet 15 mg PO DAILY ergocalciferol (vitamin D2) [Vitamin D2] 50,000 U capsule 50,000 unit PO FR Cetirizine Hcl [Zyrtec] 10 MG tablet 10 mg PO DAILY Primary Care Provider: Elham Vallejo Referrals: Elham Vallejo MD [Primary Care Provider] - 3-5 Days Disposition Disposition: Home, Self Care
[2023-02-13] MEDS: Ciprofloxacin 500 MG Tablet PO (23:25)
[2023-02-13] MEDS: Diphth,Pertuss(Acell),Tet Vac 0.5 ML Vial IM (23:25)
[2023-02-13] MEDS: Clindamycin HCl 150 MG Capsule 300 MG PO (23:25)
== END 2023-02-13 23:46 | disposition home or self-care (01) ==
LOC: ED 23:18
PROVIDERS: Emergency Provider Emergency Medicine; PCP Internal Medicine; Visit Provider Emergency Medicine
DX: S61.252A Open bite of right middle finger without damage to nail, initial encounter (principal); E78.5 Hyperlipidemia, unspecified; I10 Essential (primary) hypertension; W54.0XXA Bitten by dog, initial encounter; Z23 Encounter for immunization
CPT/HCPCS: 90471; 90715; 99282

== ENCOUNTER 2023-03-31 09:54 | Emergency (ER) | payer OTHER, SELFPAY ==
[2023-03-31 09:54] VITALS: BP 183/87; PULSE 69; RESP 14; TEMP 36.4; O2SAT 100; BMI 36.0
[2023-03-31 10:02] VITALS: BP 162/78; PULSE 60; RESP 14; O2SAT 99
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
== END 2023-03-31 10:55 | disposition home or self-care (01) ==
PROVIDERS: Emergency Provider Emergency Medicine; PCP Internal Medicine; Visit Provider Emergency Medicine
DX: I10 Essential (primary) hypertension (principal); E78.5 Hyperlipidemia, unspecified; E03.9 Hypothyroidism, unspecified; F41.9 Anxiety disorder, unspecified
CPT/HCPCS: 99282